=== PATIENT | female | born 1955 | race African-American/Black ===

== ENCOUNTER 2018-05-28 17:11 | Emergency (ER) | payer BC ==
--- NOTE | 2018-05-28 18:53 | RAD ---
LEFT ELBOW 4 VIEWS: Date: 05/28/18 HISTORY: Pain. Status post fall. FINDINGS: No joint effusion. No fracture. No cortical irregularity or periosteal reaction. Nonspecific bony hyp ertrophy along the posterior distal humerus. IMPRESSION: No post-traumatic change. POS: [facility]
--- NOTE | 2018-05-28 18:55 | RAD ---
LEFT HIP 2 VIEWS: Date: 05/28/18 HISTORY: Pain. Fall. COMPARISON: None. FINDINGS: Joint spaces preserved. Contour of the femoral head is maintained. No fracture. IMPRESSION: No post-traumatic change. POS: [facility]
[2018-05-28] MEDS ORDERED: Ketorolac Tromethamine 30 MG/ML VIAL ONE (19:23)
== END 2018-05-28 19:36 | disposition home or self-care (01) ==
LOC: ERS 17:11
DX: S70.01XA Contusion of right hip, initial encounter (principal); S50.02XA Contusion of left elbow, initial encounter; E78.2 Mixed hyperlipidemia; I10 Essential (primary) hypertension; Z79.899 Other long term (current) drug therapy; W01.0XXA Fall on same level from slipping, tripping and stumbling without subsequent striking against object, initial encounter; Y92.512 Supermarket, store or market as the place of occurrence of the external cause
CPT/HCPCS: 96372; J1885

== ENCOUNTER 2018-06-07 11:55 | Outpatient (CLI) | payer BC | END 2018-06-07 11:56 | disposition home or self-care (01) | LOC: BICMAMMO 11:55 | PROVIDERS: ATTEND Family Medicine | DX: Z12.31 Encounter for screening mammogram for malignant neoplasm of breast (principal); R92.1 Mammographic calcification found on diagnostic imaging of breast | CPT/HCPCS: 77063; 77067 ==

== ENCOUNTER 2018-07-08 12:15 | Outpatient (CLI) | payer BC ==
--- NOTE | 2018-07-08 15:02 | ULT ---
ULTRASOUND THYROID: HISTORY: Multinodular goiter. COMPARISON: Thyroid ultrasound from 2008. FINDINGS: The thyroid itself is enlarged. Isthmus measures 7 mm in AP dimension. The right lobe measures 7.4 x 3.8 x 5.6 cm and the left lobe measures 6.1 x 2.2 x 2.2 cm. There is near complete replacement of the thyroid parenchyma multiple nodules. This was seen back in 2008 and overall has not significantly changed. Given the lack of change, ultrasound-guided biopsy is not recommended. IMPRESSION: Similar appearance to the multinodular goiter. Given the no significant change in 10 years, ultrasou nd-guided biopsy not recommended. POS: [facility]
== END 2018-07-08 12:16 | disposition home or self-care (01) ==
LOC: BICULT 12:15
PROVIDERS: ATTEND Family Medicine
DX: E04.9 Nontoxic goiter, unspecified (principal); E04.2 Nontoxic multinodular goiter
CPT/HCPCS: 76536

== ENCOUNTER 2019-03-11 11:57 | Emergency (ER) | payer BC ==
[2019-03-11] MEDS ORDERED: Metoclopramide HCl 10 MG/2 ML VIAL ONE (13:52)
[2019-03-11] MEDS ORDERED: Ondansetron PF 4 MG/2 ML Vial ONE (13:53)
[2019-03-11] MEDS ORDERED: Dexamethasone 4 mg/ml Vial ONE (13:55)
--- NOTE | 2019-03-11 14:14 | CT ---
CT OF BRAIN PERFORMED WITHOUT CONTRAST ENHANCEMENT: History Headache. FINDINGS: The ventricular and cisternal system is within normal limits. There are no signs of intracerebral he morrhage or extraaxial fluid collections. The mastoid air cells and visualized sinuses are clear. IMPRESSION: No acute intracranial abnormalities. POS: [facility]
[2019-03-11] MEDS ORDERED: Ketorolac Tromethamine 30 MG/ML VIAL IVP SCH (14:15)
[2019-03-11] MEDS ORDERED: Metoclopramide HCl 10 MG/2 ML VIAL IVP SCH (14:15)
[2019-03-11] MEDS ORDERED: Dexamethasone 4 mg/ml Vial SLOW IVP SCH (14:15)
[2019-03-11] MEDS ORDERED: Ketorolac Tromethamine 30 MG/ML VIAL ONE (14:17)
[2019-03-11 14:37] LABS: #Basophils 0.1 thou/uL (0.0-0.2); #Eosinphils 0.1 thou/uL (0.0-0.7); #Monocytes 0.4 thou/uL (0.11-0.59); #Neutrophils 2.9 thou/uL (1.40-6.50); %Basophils 1.1 % (0.0-1.0); %Eosinophils 1.8 % (0.0-10.0); %Lymphocytes 36.1 % (21.0-51.0); %Monocytes 7.8 % (0.0-10.0); %Neutrophils 53.3 % (42.0-75.0); Hemoglobin 14.5 g/dL (12.0-16.0); Mean Corpuscular HGB CONC 33.3 g/dL (32.0-36.0); Mean Corpuscular Hemoglobin 30.9 pg (27.0-31.0); Mean Platelet Volume 7.5 fL (7.4-10.4); Platelet Count 249 thou/uL (130-400); RBC Distribution Width 12.3 % (11.5-14.5); White Blood Cell (WBC) Count 5.4 thou/uL (4.8-10.8)
[2019-03-11 15:02] LABS: ALT (SGPT) 24 U/L (8-55); AST (SGOT) 32 U/L (5-34); Albumin 4.3 g/dL (3.4-4.8); Alkaline Phosphatase 43 U/L (40-150); Anion Gap 12 mmol/L (10-20); BUN (Urea Nitrogen) 13 mg/dL (9.8-20.1); Bilirubin, Total 0.7 mg/dL (0.2-1.2); Calc. Creatinine Clearance 0 mL/min (70-130); Calcium 10.2 mg/dL (7.8-10.44); Carbon Dioxide 25 mmol/L (23-31); Chloride 106 mmol/L (98-107); Estimated GFR-MDRD 77; Globulin 3.2 g/dL (2.4-3.5); Glucose 112 mg/dL (80-115); Potassium 3.4 mmol/L (3.5-5.1); Protein, Total 7.5 g/dL (6.0-8.3); Sodium 140 mmol/L (136-145)
== END 2019-03-11 15:53 | disposition home or self-care (01) ==
LOC: ERS 11:57
DX: R51 Headache (principal); R50.9 Fever, unspecified; E78.2 Mixed hyperlipidemia; I10 Essential (primary) hypertension
CPT/HCPCS: 70450; 80053; 85025; 96361; 96374; 96375; J1100; J1885; J2405; J2765

== ENCOUNTER 2019-06-09 12:21 | Outpatient (CLI) | payer BC ==
--- NOTE | 2019-06-09 13:10 | MMO ---
Bilateral MAMMO Bilat Screen [facility]. CLINICAL HISTORY: Patient is 63 years old and is seen for screening. The patient has no family history of breast cancer. The patient has no personal history of cancer. VIEWS: The views performed were: bilateral craniocaudal with tomosynthesis and bilateral mediolateral oblique with tomosynthesis. FILMS COMPARED: The present examination has been compared to a prior imaging study performed at [facility] on 06/07/2018. This study has been interpreted with the assistance of computer-aided detection. MAMMOGRAM FINDINGS: The breasts are almost entirely fat. There are no suspicious masses, suspicious calcifications, or new areas of architectural distortion. IMPRESSION: THERE IS NO MAMMOGRAPHIC EVIDENCE OF MALIGNANCY. A ROUTINE FOLLOW-UP MAMMOGRAM IN 1 YEAR IS RECOMMENDED. THE RESULTS OF THIS EXAM WERE SENT TO THE PATIENT. ACR BI-RADS Category 1 - Negative MAMMOGRAPHY NOTE: 1. A negative mammogram report should not delay a biopsy if a dominant of clinically suspicious mass is present. 2. Approximately 10% to 15% of breast cancers are not detected by mammography. 3. Adenosis and dense breasts may obscure an underlying neoplasm. Reported by: GUADALUPE VILLAGOMEZ MD Electonically Signed: [id number]
== END 2019-06-09 12:22 | disposition home or self-care (01) ==
LOC: BICMAMMO 12:21
PROVIDERS: ATTEND Family Medicine
DX: Z12.31 Encounter for screening mammogram for malignant neoplasm of breast (principal)
CPT/HCPCS: 77063; 77067

== ENCOUNTER 2019-10-01 13:39 | Outpatient (CLI) | payer BC ==
--- NOTE | 2019-10-01 15:31 | ULT ---
RENAL ULTRASOUND: 10/01/19 HISTORY: Chronic renal disease. Real time imaging of the right and left kidneys were performed. The right kidney measures 10.3 and th e left kidney 10.1 cm in size. No signs of cyst, mass or obstruction. The bladder region is unremark able. IMPRESSION: Unremarkable renal ultrasound. POS: [facility]
== END 2019-10-01 13:40 | disposition home or self-care (01) ==
LOC: BICULT 13:39
PROVIDERS: ATTEND Internal Medicine Nephrology
DX: N18.2 Chronic kidney disease, stage 2 (mild) (principal)
CPT/HCPCS: 76770

== ENCOUNTER 2020-06-10 14:22 | Outpatient (CLI) | payer BC ==
--- NOTE | 2020-06-10 16:10 | MMO ---
Bilateral MAMMO Bilat Screen [facility]. CLINICAL HISTORY: Patient is 64 years old and is seen for screening. The patient has no family history of breast cancer. The patient has no personal history of cancer. VIEWS: The views performed were: bilateral craniocaudal with tomosynthesis and bilateral mediolateral oblique with tomosynthesis. FILMS COMPARED: The present examination has been compared to prior imaging studies performed at [facility] on 06/07/2018 and 06/09/2019, and at [facility] on 02/04/2016 and 05/08/2017. This study has been interpreted with the assistance of computer-aided detection. MAMMOGRAM FINDINGS: The breasts are almost entirely fat. Finding 1: There are stable benign appearing calcifications seen in both breasts. Finding 2: There are stable benign appearing densities seen in both breasts. There are no suspicious masses, suspicious calcifications, or new areas of architectural distortion. IMPRESSION: THERE IS NO MAMMOGRAPHIC EVIDENCE OF MALIGNANCY. A ROUTINE FOLLOW-UP MAMMOGRAM IN 1 YEAR IS RECOMMENDED. THE RESULTS OF THIS EXAM WERE SENT TO THE PATIENT. ACR BI-RADS Category 2 - Benign finding MAMMOGRAPHY NOTE: 1. A negative mammogram report should not delay a biopsy if a dominant of clinically suspicious mass is present. 2. Approximately 10% to 15% of breast cancers are not detected by mammography. 3. Adenosis and dense breasts may obscure an underlying neoplasm. Reported by: SANA PEARCE MD Electonically Signed: [id number]
== END 2020-06-10 14:23 | disposition home or self-care (01) ==
LOC: BICMAMMO 14:22
PROVIDERS: ATTEND Obstetrics & Gynecology
DX: Z12.31 Encounter for screening mammogram for malignant neoplasm of breast (principal)
CPT/HCPCS: 77063; 77067

== ENCOUNTER 2021-06-13 14:04 | Outpatient (CLI) | payer BC | END 2021-06-13 14:05 | disposition home or self-care (01) | LOC: BICMAMMO 14:04 | PROVIDERS: ATTEND Obstetrics & Gynecology | DX: Z12.31 Encounter for screening mammogram for malignant neoplasm of breast (principal) | CPT/HCPCS: 77063; 77067 ==

== ENCOUNTER 2022-06-14 14:19 | Outpatient (CLI) | payer BC | END 2022-06-14 14:20 | disposition home or self-care (01) | LOC: BICMAMMO 14:19 | PROVIDERS: ATTEND Obstetrics & Gynecology | DX: Z12.31 Encounter for screening mammogram for malignant neoplasm of breast (principal) | CPT/HCPCS: 77063; 77067 ==

== ENCOUNTER 2022-07-26 03:31 | Emergency (ER) | payer BC ==
[2022-07-26] MEDS ORDERED: Ketorolac Tromethamine 30 MG/ML VIAL ONE (04:23)
[2022-07-26 04:34] LABS: #Basophils 0.1 thou/uL (0.0-0.2); #Eosinphils 0.3 thou/uL (0.0-0.7); #Lymphocytes 2.5 thou/uL (1.20-3.40); #Monocytes 0.6 thou/uL (0.11-0.59); #Neutrophils 3.5 thou/uL (1.40-6.50); %Basophils 0.8 % (0.0-1.0); %Monocytes 8.7 % (0.0-10.0); %Neutrophils 50.5 % (42.0-75.0); Hemoglobin 14.3 g/dL (12.0-16.0); Mean Corpuscular HGB CONC 33.6 g/dL (32.0-36.0); Mean Corpuscular Hemoglobin 29.6 pg (27.0-31.0); Mean Corpuscular Volume 88.1 fl (78.0-98.0); Mean Platelet Volume 7.6 fL (7.4-10.4); Platelet Count 302 10x3/uL (130-400); Red Blood Cell (RBC) Count 4.84 mill/uL (4.20-5.40); White Blood Cell (WBC) Count 6.9 10x3/uL (4.8-10.8)
[2022-07-26] MEDS ORDERED: diphenhydrAMINE 50 MG/ML VIAL ONE (04:46)
[2022-07-26] MEDS ORDERED: Metoclopramide HCl 10 MG/2 ML VIAL ONE (04:46)
[2022-07-26 04:57] LABS: ALT (SGPT) 23 U/L (8-55); AST (SGOT) 22 U/L (5-34); Albumin 3.9 g/dL (3.4-4.8); Alkaline Phosphatase 45 U/L (40-110); Anion Gap 12 mmol/L (10-20); BUN (Urea Nitrogen) 25 mg/dL (9.8-20.1); Bilirubin, Total 0.6 mg/dL (0.2-1.2); Calc. Creatinine Clearance 0 mL/min (70-130); Calcium 9.4 mg/dL (7.8-10.44); Carbon Dioxide 24 mmol/L (23-31); Chloride 107 mmol/L (98-107); Estimated GFR 59; Globulin 3.3 g/dL (2.4-3.5); Glucose 112 mg/dL (80-115); Protein, Total 7.2 g/dL (5.8-8.1); Sodium 139 mmol/L (136-145)
[2022-07-26 05:21] LABS: SARS-CoV-2 NAA Rapid Test Not Detected (NotDetected)
== END 2022-07-26 07:26 | disposition home or self-care (01) ==
LOC: ERS 03:31
DX: J06.9 Acute upper respiratory infection, unspecified (principal); I10 Essential (primary) hypertension; E78.00 Pure hypercholesterolemia, unspecified; Z20.822 Contact with and (suspected) exposure to COVID-19
CPT/HCPCS: 36415; 70450; 80053; 83605; 85025; 96374; 96375; J1200; J1885; J2765

== ENCOUNTER 2023-06-27 15:16 | Outpatient (CLI) | payer BC | END 2023-06-27 15:17 | disposition home or self-care (01) | LOC: BICMAMMO 15:16 | PROVIDERS: ATTEND Family Medicine | DX: Z12.31 Encounter for screening mammogram for malignant neoplasm of breast (principal) | CPT/HCPCS: 77063; 77067 ==

== ENCOUNTER 2024-01-04 12:44 | Emergency (ER) | payer BC ==
[2024-01-04] MEDS ORDERED: Ketorolac Tromethamine 30 MG (1 mL) VIAL ONE (13:41)
[2024-01-04] MEDS ORDERED: Orphenadrine Citrate 60 MG/2 ML VIAL ONE (13:43)
== END 2024-01-04 15:26 | disposition home or self-care (01) ==
LOC: ERS 12:44
DX: S16.1XXA Strain of muscle, fascia and tendon at neck level, initial encounter (principal); R51.9 Headache, unspecified; E04.9 Nontoxic goiter, unspecified; I10 Essential (primary) hypertension; V43.52XA Car driver injured in collision with other type car in traffic accident, initial encounter; Z79.899 Other long term (current) drug therapy
CPT/HCPCS: 70450; 72125; 72128; 72131; 96372; J1885; J2360

== ENCOUNTER 2024-06-30 13:39 | Outpatient (CLI) | payer BC | END 2024-06-30 13:40 | disposition home or self-care (01) | LOC: BICMAMMO 13:39 | PROVIDERS: ATTEND Family Medicine | DX: Z12.31 Encounter for screening mammogram for malignant neoplasm of breast (principal) | CPT/HCPCS: 77063; 77067 ==

== ENCOUNTER 2025-07-06 14:49 | Outpatient (CLI) | payer BC | END 2025-07-06 14:50 | disposition home or self-care (01) | LOC: BICMAMMO 14:49 | PROVIDERS: ATTEND Family Medicine | DX: Z78.0 Asymptomatic menopausal state (principal); M85.851 Other specified disorders of bone density and structure, right thigh; M85.852 Other specified disorders of bone density and structure, left thigh | CPT/HCPCS: 77080 ==